=== PATIENT | male | born 1940 | race Caucasian/White ===

== ENCOUNTER 2017-06-11 13:54 | Emergency (ER) | payer OTHER ==
[~2017-06-11] VITALS: Ht 177.8 cm; Wt 79.4 kg
[2017-06-11 14:12] VITALS: Ht 177.8 cm; Wt 79.4 kg
[2017-06-11 16:08] LABS: CALCIUM 9.2 mg/dL (8.5-10.1); CARBON DIOXIDE 27.6 mmol/L (21-32); CHLORIDE SERUM 107 mmol/L (98-107); CREATININE SERUM 0.9 mg/dL (0.7-1.3); GLUCOSE SERUM 101 mg/dL (74-106); POTASSIUM SERUM 3.7 mmol/L (3.5-5.1); SODIUM SERUM 143 mmol/L (136-145)
[2017-06-11 16:12] LABS: ALKALINE PHOSPHATASE 94 U/L (46-116); ALT/SGPT 22 U/L (16-63); AST/SGOT 35 U/L (15-37); BASOPHIL % 0.2 % (0-2); BILIRUBIN TOTAL 0.6 mg/dL (0.20-1.00); LIPASE 165 IU/L (73-393); TOTAL PROTEIN, SERUM 7.6 g/dL (6.4-8.2)
[2017-06-11 16:24] LABS: PLATELET COUNT 227 x10^3mcL (130-400); RED CELL DISTRIBUTION WIDTH 14.5 % (11.5-14.5)
[2017-06-11 20:01] VITALS: BP 143/81
== END 2017-06-11 19:45 | disposition short-term general hospital (02) ==
LOC: ED 13:54
PROVIDERS: Emergency Medicine
DX: I62.00 Nontraumatic subdural hemorrhage, unspecified (principal); Z88.0 Allergy status to penicillin; Z88.8 Allergy status to other drugs, medicaments and biological substances
CPT/HCPCS: 87804; J7030